=== PATIENT | female | born 2000 | race Caucasian/White ===

== ENCOUNTER 2022-09-14 10:25 | Emergency (ER) | payer OTHER ==
[~2022-09-14] VITALS: Ht 167.6 cm; Wt 62.1 kg
== END 2022-09-14 16:47 | disposition home or self-care (01) ==
LOC: ER 10:25
DX: N39.0 Urinary tract infection, site not specified (principal); R10.2 Pelvic and perineal pain; Z88.8 Allergy status to other drugs, medicaments and biological substances; Z91.013 Allergy to seafood